=== PATIENT | female | born 1975 | race Caucasian/White ===

== ENCOUNTER 2018-03-30 17:16 | Emergency (ER) | payer OTHER, MEDICAID, SELFPAY ==
[2018-03-30 17:41] VITALS: BP 141/90; PULSE 121; RESP 18; TEMP 36.7; O2SAT 99
--- NOTE | 2018-03-30 18:09 | ED.GENADULT ---
HPI - General Adult <Isaac Schilling DO - Last Filed: 03/31/18 20:44> General Chief complaint: Toxicology Problem Stated complaint: ALCOHOL W/DRAWL, MASSIVE DEPRESSION Time Seen by Provider: 03/30/18 18:08 Source: patient Mode of arrival: ambulatory Limitations: no limitations History of Present Illness HPI narrative: 42-year-old female here for evaluation of depression and alcohol withdrawal. Patient states that she came in this evening because over the past month she has been drinking on a daily basis. Does not know exactly how much she drinks but at least 10 beers a day mixed with hard alcohol. She states she has had alcohol issues in the past. Has been through alcohol detox in the past but that was greater than 1 year ago. She states she has not taken any of her mental health medications to include Effexor and Remeron in the past month. She states she does not have any money for these items. She states that her friends by her her alcohol. She does have other issues going on to include relationship issues between her ex-. She also was under a legal custody baugh with her child. She states she has lost her job. Also has had a friend within the past several months. She states that this has led to the relapse of alcohol. She is currently living in her car. Her last drink was at 1600 hr this afternoon. Related Data Home Medications Medication Instructions Recorded Confirmed Control 1 tab PO DAILY 03/30/18 03/30/18 mirtazapine [Remeron] 15 mg PO BEDTIME 03/30/18 03/30/18 venlafaxine [Effexor XR] 150 mg PO DAILY 03/30/18 03/30/18 Allergies Allergy/AdvReac Type Severity Reaction Status Date / Time aripiprazole [From ABILIFY] Allergy Intermediate RAPID Verified 03/31/18 04:29 HEART RATE, ANXIETY, CRYING metronidazole Allergy Intermediate RASH/HIVES Verified 03/31/18 04:29 Review of Systems <DO Vinicius Farris Last Filed: 03/31/18 20:44> Constitutional Denies fever(s) and Denies headache(s) ENT Ears, Nose, Mouth, and Throat: Denies vertigo, Denies dizziness and Denies headache(s) Cardiovascular Denies chest pain and Denies dyspnea Respiratory Denies dyspnea Gastrointestinal Gastrointestinal: Denies abdominal pain, Denies nausea and Denies vomiting Genitourinary Denies dysuria Musculoskeletal Denies myalgias and Denies arthralgias Integumentary/Breasts Denies rash Neurologic Denies confusion, Denies vertigo, Denies dizziness, Denies headache(s) and Denies paresthesias Psychiatric Reports anxiety, Denies confusion, Reports depression, Reports hopelessness, Reports irritability, Reports mood swings, Denies panic attacks, Denies paranoia, Denies visual hallucinations, Denies homicidal ideation and Denies suicidal ideation Hematologic/Lymphatic Comments: Not on anticoagulation Exam <Isaac Schilling, DO - Last Filed: 03/31/18 20:44> Initial Vital Signs Initial Vital Signs: Vital Signs Temperature 98.0 F 03/30/18 17:41 Pulse Rate 121 H 03/30/18 17:41 Respiratory Rate 18 03/30/18 17:41 Blood Pressure 141/90 H 03/30/18 17:41 Pulse Oximetry 99 03/30/18 17:41 Const General: cooperative, comfortable, well developed, well groomed, No acute distress and anxious Orientation: alert, awake, oriented x3 and not confused Limitations: mental status not altered [facility] Head: normal to inspection and normocephalic Resp Effort & Inspection: normal respiratory effort Auscultation: clear to auscultation bilaterally Cardio Rate: tachycardic Rhythm: regular rhythm Pulses: radial pulses present GI Inspection: non-distended Skin Lesions: no lesions Rashes: no rashes Wounds: no wounds Neuro General: alert, awake and oriented x3 Cognition: normal cognition Speech: speech normal Sensory Exam: no sensory deficits noted Extrem General: normal to inspection and capillary refill normal Psych Appearance: grossly normal and well kempt Mental Status: mental status grossly normal Speech and Movement: not agitated, speech clear, speech not delayed, restless and speech not slurred Mood: anxious mood, not manic, not paranoid and No angry Affect: sad and No irritable affect Attitude: cooperative Thought Process: normal Thought Content: normal <Curly Costa, DO - Last Filed: 03/31/18 15:45> Initial Vital Signs Initial Vital Signs: Vital Signs Temperature 98.0 F 03/30/18 17:41 Pulse Rate 121 H 03/30/18 17:41 Respiratory Rate 18 03/30/18 17:41 Blood Pressure 141/90 H 03/30/18 17:41 Pulse Oximetry 99 03/30/18 17:41 Course <Isaac Schilling DO - Last Filed: 03/31/18 20:44> Orders Ordered: Discontinued Medications Chlordiazepoxide HCl (Librium) 10 mg PO NOW ONE Stop: 03/30/18 18:48 Last Admin: 03/30/18 19:21 Dose: 10 mg Diazepam (Valium) 5 mg IV NOW ONE Stop: 03/31/18 12:09 Last Admin: 03/31/18 12:24 Dose: 5 mg Sodium Chloride (Normal Saline 0.9%) 1,000 mls @ 125 mls/hr IV CONT VENITA Last Infusion: 03/30/18 22:10 Dose: 0 mls/hr Admin: 03/30/18 18:41 Dose: 125 mls/hr Lorazepam (Ativan) 1 mg IV NOW ONE Stop: 03/30/18 23:57 Last Admin: 03/31/18 00:05 Dose: 1 mg Lorazepam (Ativan) 2 mg IV NOW ONE Stop: 03/31/18 08:40 Last Admin: 03/31/18 08:46 Dose: 2 mg Vital Signs - 8 hr 03/31/18 15:01 Pulse Rate 106 H Respiratory Rate 24 Blood Pressure [Right Arm] 129/92 H Pulse Oximetry 98 <Curly Costa DO - Last Filed: 03/31/18 15:45> Orders Ordered: Discontinued Medications Chlordiazepoxide HCl (Librium) 10 mg PO NOW ONE Stop: 03/30/18 18:48 Last Admin: 03/30/18 19:21 Dose: 10 mg Diazepam (Valium) 5 mg IV NOW ONE Stop: 03/31/18 12:09 Last Admin: 03/31/18 12:24 Dose: 5 mg Sodium Chloride (Normal Saline 0.9%) 1,000 mls @ 125 mls/hr IV CONT VENITA Last Infusion: 03/30/18 22:10 Dose: 0 mls/hr Admin: 03/30/18 18:41 Dose: 125 mls/hr Lorazepam (Ativan) 1 mg IV NOW ONE Stop: 03/30/18 23:57 Last Admin: 03/31/18 00:05 Dose: 1 mg Lorazepam (Ativan) 2 mg IV NOW ONE Stop: 03/31/18 08:40 Last Admin: 03/31/18 08:46 Dose: 2 mg Reevaluation(s) Reevaluation #1: Received in sign-out from Dr. Schilling, I have performed my own interview and physical exam and have no significant additions. The patient is becoming a bit agitated and tachycardic to 110, Ativan ordered. She denies any suicidal or homicidal ideations. Her most recent hospitalizations for alcohol detox was about 1 year ago and most recently she has been to [place] twice and [facility] once. Time: 08:40 Reevaluation #2: Patient has been seen and evaluated by our care management team as well as social Work in the emergency department, both have deemed her stable for discharge in of given her significant resources to access at home. Please see their notes for further information. The patient will be given an Ativan taper to help her detox at home and she has significant resources for follow-up in the aftermath Vital Signs - 8 hr 03/31/18 15:01 Pulse Rate 106 H Respiratory Rate 24 Blood Pressure [Right Arm] 129/92 H Pulse Oximetry 98 Medical Decision Making <Isaac Schilling, - Last Filed: 03/31/18 20:44> Lab Data Lab results reviewed: Yes I reviewed the patient's lab results. Result diagrams: 03/30/18 18:25 03/30/18 18:25 Lab Results 03/30/18 03/30/18 03/30/18 Range/Units 18:25 18:25 18:25 WBC 7.8 (4.5-11.0) X10^3/uL RBC 4.51 (4.0-5.2) X10^6/uL Hgb 13.4 (12.0-16.0) g/dL Hct 40.4 (36-46) % MCV 89.5 (80-100) fL MCH 29.8 (26-34) PG MCHC 33.2 (30-36) % RDW 17.6 H (11.6-14.8) % Plt Count 391 (150-400) X10^3/uL Neut % (Auto) 62.1 (50-75) % Lymph % (Auto) 29.7 (25-40) % [place] % (Auto) 7.6 (3-14) % Eos % (Auto) 0.1 L (2-4) % Baso % (Auto) 0.5 (0-2) % Neut # (Auto) 4900 (0060-6900) /uL Sodium 144 (137-145) mmol/L Potassium 3.4 (3.4-5.1) mmol/L Chloride 103 (98-107) mmol/L Carbon Dioxide 27 (22-32) mmol/L BUN 7 (7-17) mg/dL Creatinine 0.60 (0.52-1.04) mg/dL Estimated GFR > 60.0 (>60) mL/min BUN/Creatinine Ratio 11.7 (6-22) Glucose 91 (70-100) mg/dL Calcium 9.4 (8.4-10.2) mg/dL Total Bilirubin 0.3 (0.2-1.3) mg/dL AST 31 (14-36) IU/L ALT 25 (9-52) IU/L Alkaline Phosphatase 75 (38-126) U/L Total Protein 8.2 (6.3-8.2) g/dL Albumin 4.7 (3.5-5.0) g/dL Globulin 3.5 (1.7-4.1) g/dL Albumin/Globulin Ratio 1.3 (1.0-2.8) Lipase 134 (23-300) U/L TSH 1.37 (0.47-4.68) uIU/mL Salicylates < 1.0 (<20) mg/dL Urine Opiates Screen (Negative) Ur Oxycodone Screen (Negative) Urine Methadone Screen (Negative) Acetaminophen < 10 L (10-30) ug/mL Ur Barbiturates Screen (Negative) U Tricyclic Antidepress (Negative) Ur Phencyclidine Scrn (Negative) Ur Amphetamines Screen (Negative) U Methamphetamines Scrn (Negative) Ur MDMA Scrn (Ecstasy) (Negative) U Benzodiazepines Scrn (Negative) Urine Cocaine Screen (Negative) U Marijuana (THC) Screen (Negative) Ethyl Alcohol 134 mg/dL 03/30/18 Range/Units 19:50 WBC (4.5-11.0) X10^3/uL RBC (4.0-5.2) X10^6/uL Hgb (12.0-16.0) g/dL Hct (36-46) % MCV (80-100) fL MCH (26-34) PG MCHC (30-36) % RDW (11.6-14.8) % Plt Count (150-400) X10^3/uL Neut % (Auto) (50-75) % Lymph % (Auto) (25-40) % [place] % (Auto) (3-14) % Eos % (Auto) (2-4) % Baso % (Auto) (0-2) % Neut # (Auto) (0884-2538) /uL Sodium (137-145) mmol/L Potassium (3.4-5.1) mmol/L Chloride (98-107) mmol/L Carbon Dioxide (22-32) mmol/L BUN (7-17) mg/dL Creatinine (0.52-1.04) mg/dL Estimated GFR (>60) mL/min BUN/Creatinine Ratio (6-22) Glucose (70-100) mg/dL Calcium (8.4-10.2) mg/dL Total Bilirubin (0.2-1.3) mg/dL AST (14-36) IU/L ALT (9-52) IU/L Alkaline Phosphatase (38-126) U/L Total Protein (6.3-8.2) g/dL Albumin (3.5-5.0) g/dL Globulin (1.7-4.1) g/dL Albumin/Globulin Ratio (1.0-2.8) Lipase (23-300) U/L TSH (0.47-4.68) uIU/mL Salicylates (<20) mg/dL Urine Opiates Screen Negative (Negative) Ur Oxycodone Screen Negative (Negative) Urine Methadone Screen Negative (Negative) Acetaminophen (10-30) ug/mL Ur Barbiturates Screen Negative (Negative) U Tricyclic Antidepress Negative (Negative) Ur Phencyclidine Scrn Negative (Negative) Ur Amphetamines Screen Negative (Negative) U Methamphetamines Scrn Negative (Negative) Ur MDMA Scrn (Ecstasy) Negative (Negative) U Benzodiazepines Scrn Negative (Negative) Urine Cocaine Screen Negative (Negative) U Marijuana (THC) Screen Positive H (Negative) Ethyl Alcohol mg/dL Point of Care Testing Test Results Negative Urine Dip Bedside Urine Glucose Negative Bedside Urine Bilirubin - Negative Bedside Urine Ketone - Negative Urine Specific [place] 1.010 Bedside Urine Occult Blood + Bedside Urine pH 7.0 Bedside Urine Protein - Negative Bedside Urine Urobilinogen - Negative Bedside Urine Nitrite - Negative Bedside Urine Leukocytes - Negative Esterase Point of care testing: Point of Care Testing Test Results Negative Urine Dip Bedside Urine Glucose Negative Bedside Urine Bilirubin - Negative Bedside Urine Ketone - Negative Urine Specific [place] 1.010 Bedside Urine Occult Blood + Bedside Urine pH 7.0 Bedside Urine Protein - Negative Bedside Urine Urobilinogen - Negative Bedside Urine Nitrite - Negative Bedside Urine Leukocytes - Negative Esterase ECG Data Attestation: I personally reviewed and interpreted this ECG as follows: Prior ECG tracings: not available for review Interpretation: Sinus tachycardia ventricular rate of 106 Normal axis normal intervals Normal QRS normal QTC no ST T wave changes MDM Narrative Medical decision making narrative: patient has been calm since being here in the emergency department. She is voluntary. She is asking for help with regard to her alcohol and also her depression. She currently is not suicidal but she is obviously hopeless. Mentions multiple times that she does not know which she is going to do next and what life is going to bring. Multiple factors to include family issues. She is currently living in her car. She was given a Librium at approximately 720 this evening. Heart rate was elevated upon arrival that has since improved. Patient is medically clear. attempted to contact multiple places for detox however there are no beds available. Patient continues to be medically clear. Is stable. Had a discussion with patient regarding options and after this discussion decision was made for her to stay with this here in the emergency department this evening and re-evaluate attempt placement in the morning. evaluated at 0030 patient stated that she did not need any more medications. She was willing to stay here in the emergency department. Social work consult was placed. Will continue to monitor this evening. Patient is stable overnight. No further Ativan was required. Patient not tachycardic. Social service consult was placed to help with disposition. Care turned over to day provider change of shift for disposition. <Curly Costa, DO - Last Filed: 03/31/18 15:45> Lab Data Lab Results 03/30/18 03/30/18 03/30/18 Range/Units 18:25 18:25 18:25 WBC 7.8 (4.5-11.0) X10^3/uL RBC 4.51 (4.0-5.2) X10^6/uL Hgb 13.4 (12.0-16.0) g/dL Hct 40.4 (36-46) % MCV 89.5 (80-100) fL MCH 29.8 (26-34) PG MCHC 33.2 (30-36) % RDW 17.6 H (11.6-14.8) % Plt Count 391 (150-400) X10^3/uL Neut % (Auto) 62.1 (50-75) % Lymph % (Auto) 29.7 (25-40) % [place] % (Auto) 7.6 (3-14) % Eos % (Auto) 0.1 L (2-4) % Baso % (Auto) 0.5 (0-2) % Neut # (Auto) 4900 (0039-5248) /uL Sodium 144 (137-145) mmol/L Potassium 3.4 (3.4-5.1) mmol/L Chloride 103 (98-107) mmol/L Carbon Dioxide 27 (22-32) mmol/L BUN 7 (7-17) mg/dL Creatinine 0.60 (0.52-1.04) mg/dL Estimated GFR > 60.0 (>60) mL/min BUN/Creatinine Ratio 11.7 (6-22) Glucose 91 (70-100) mg/dL Calcium 9.4 (8.4-10.2) mg/dL Total Bilirubin 0.3 (0.2-1.3) mg/dL AST 31 (14-36) IU/L ALT 25 (9-52) IU/L Alkaline Phosphatase 75 (38-126) U/L Total Protein 8.2 (6.3-8.2) g/dL Albumin 4.7 (3.5-5.0) g/dL Globulin 3.5 (1.7-4.1) g/dL Albumin/Globulin Ratio 1.3 (1.0-2.8) Lipase 134 (23-300) U/L TSH 1.37 (0.47-4.68) uIU/mL Salicylates < 1.0 (<20) mg/dL Urine Opiates Screen (Negative) Ur Oxycodone Screen (Negative) Urine Methadone Screen (Negative) Acetaminophen < 10 L (10-30) ug/mL Ur Barbiturates Screen (Negative) U Tricyclic Antidepress (Negative) Ur Phencyclidine Scrn (Negative) Ur Amphetamines Screen (Negative) U Methamphetamines Scrn (Negative) Ur MDMA Scrn (Ecstasy) (Negative) U Benzodiazepines Scrn (Negative) Urine Cocaine Screen (Negative) U Marijuana (THC) Screen (Negative) Ethyl Alcohol 134 mg/dL 03/30/18 Range/Units 19:50 WBC (4.5-11.0) X10^3/uL RBC (4.0-5.2) X10^6/uL Hgb (12.0-16.0) g/dL Hct (36-46) % MCV (80-100) fL MCH (26-34) PG MCHC (30-36) % RDW (11.6-14.8) % Plt Count (150-400) X10^3/uL Neut % (Auto) (50-75) % Lymph % (Auto) (25-40) % [place] % (Auto) (3-14) % Eos % (Auto) (2-4) % Baso % (Auto) (0-2) % Neut # (Auto) (0554-7148) /uL Sodium (137-145) mmol/L Potassium (3.4-5.1) mmol/L Chloride (98-107) mmol/L Carbon Dioxide (22-32) mmol/L BUN (7-17) mg/dL Creatinine (0.52-1.04) mg/dL Estimated GFR (>60) mL/min BUN/Creatinine Ratio (6-22) Glucose (70-100) mg/dL Calcium (8.4-10.2) mg/dL Total Bilirubin (0.2-1.3) mg/dL AST (14-36) IU/L ALT (9-52) IU/L Alkaline Phosphatase (38-126) U/L Total Protein (6.3-8.2) g/dL Albumin (3.5-5.0) g/dL Globulin (1.7-4.1) g/dL Albumin/Globulin Ratio (1.0-2.8) Lipase (23-300) U/L TSH (0.47-4.68) uIU/mL Salicylates (<20) mg/dL Urine Opiates Screen Negative (Negative) Ur Oxycodone Screen Negative (Negative) Urine Methadone Screen Negative (Negative) Acetaminophen (10-30) ug/mL Ur Barbiturates Screen Negative (Negative) U Tricyclic Antidepress Negative (Negative) Ur Phencyclidine Scrn Negative (Negative) Ur Amphetamines Screen Negative (Negative) U Methamphetamines Scrn Negative (Negative) Ur MDMA Scrn (Ecstasy) Negative (Negative) U Benzodiazepines Scrn Negative (Negative) Urine Cocaine Screen Negative (Negative) U Marijuana (THC) Screen Positive H (Negative) Ethyl Alcohol mg/dL Point of Care Testing Test Results Negative Urine Dip Bedside Urine Glucose Negative Bedside Urine Bilirubin - Negative Bedside Urine Ketone - Negative Urine Specific [place] 1.010 Bedside Urine Occult Blood + Bedside Urine pH 7.0 Bedside Urine Protein - Negative Bedside Urine Urobilinogen - Negative Bedside Urine Nitrite - Negative Bedside Urine Leukocytes - Negative Esterase Point of care testing: Point of Care Testing Test Results Negative Urine Dip Bedside Urine Glucose Negative Bedside Urine Bilirubin - Negative Bedside Urine Ketone - Negative Urine Specific [place] 1.010 Bedside Urine Occult Blood + Bedside Urine pH 7.0 Bedside Urine Protein - Negative Bedside Urine Urobilinogen - Negative Bedside Urine Nitrite - Negative Bedside Urine Leukocytes - Negative Esterase Discharge Plan Departure Patient Disposition: Xfer Psychiatric Hosp Clinical Impression: Alcoholic intoxication, Depression Discharge Date/Time: 03/31/18 15:53 Interventions: ED Discharge Assessment Last Done: 03/31/18 15:53 Activity Restrictions/Additional Instructions: *You have been diagnosed with [acute alcohol withdrawal, anxiety, depression ] *What to do: *Take medications as directed. Ativan prescription has been given to you for help with withdrawal symptoms *Follow up with your primary care provider in 2-3 days, call for an appointment. Let them know you were seen in the Emergency Department and that we ask that you be seen in follow up *Return to ER if you should have any new, worsening or concerning symptoms Referrals: [facility] [Outside] Alejandra Cormier DO [Primary Care Provider] -
[2018-03-30 18:36] LABS: Add Manual Diff / Slide Review NO; Basophils Percent Auto 0.5 % (0-2); Eosinophils Percent Auto 0.1 % (2-4); Hematocrit 40.4 % (36-46); Hemoglobin 13.4 g/dL (12.0-16.0); Lymphocytes Percent Auto 29.7 % (25-40); Mean Corpuscular HGB Conc 33.2 % (30-36); Mean Corpuscular Hemoglobin 29.8 PG (26-34); Mean Corpuscular Volume 89.5 fL (80-100); Monocytes Percent Auto 7.6 % (3-14); Neutrophils Absolute Auto 4900 /uL (3000-5900); Neutrophils Percent Auto 62.1 % (50-75); Platelet Count 391 X10^3/uL (150-400); Red Blood Cell Count 4.51 X10^6/uL (4.0-5.2); Red Cell Distribution Width 17.6 % (11.6-14.8); White Blood Cell Count 7.8 X10^3/uL (4.5-11.0)
[2018-03-30] MEDS: SODIUM CHLORIDE 0.9% 1,000 ML 125 ML IV (18:41)
[2018-03-30 18:49] LABS: Acetaminophen < 10 ug/mL (10-30); Alanine Aminotransferase 25 IU/L (9-52); Albumin 4.7 g/dL (3.5-5.0); Albumin Globulin Ratio 1.3 (1.0-2.8); Alkaline Phosphatase 75 U/L (38-126); Aspartate Aminotransferase 31 IU/L (14-36); BUN Creatinine Ratio 11.7 (6-22); Bilirubin Total 0.3 mg/dL (0.2-1.3); Blood Urea Nitrogen 7 mg/dL (7-17); Calcium 9.4 mg/dL (8.4-10.2); Carbon Dioxide 27 mmol/L (22-32); Chloride 103 mmol/L (98-107); Estimated Glomerular Filt Rate > 60.0 mL/min (>60); Ethanol (ETOH) 134 mg/dL; Globulin 3.5 g/dL (1.7-4.1); Glucose 91 mg/dL (70-100); HEMOLYSIS < 15 (0-50); Lipase 134 U/L (23-300); Potassium 3.4 mmol/L (3.4-5.1); Salicylate < 1.0 mg/dL (<20); Sodium 144 mmol/L (137-145); Total Protein 8.2 g/dL (6.3-8.2)
[2018-03-30] MEDS: chlordiazePOXIDE 10 MG CAPSULE PO (19:21)
[2018-03-30 19:26] LABS: Thyroid Stimulating Hormone 1.37 uIU/mL (0.47-4.68)
[2018-03-30 20:08] LABS: Urine Amphetamines Negative (Negative); Urine Barbiturates Negative (Negative); Urine Benzodiazepines Negative (Negative); Urine Cocaine Negative (Negative); Urine MDMA Negative (Negative); Urine Methadone Negative (Negative); Urine Methamphetamines Negative (Negative); Urine Morphine/Opi cutoff 2000 Negative (Negative); Urine Oxycodone Negative (Negative); Urine Phencyclidine Negative (Negative); Urine Tetrahydrocannabinol Positive (Negative); Urine Tricyclic Antidepressant Negative (Negative)
[2018-03-30 20:24] VITALS: BP 121/78; PULSE 98; RESP 16; O2SAT 98
[2018-03-30 21:19] VITALS: BP 129/82; PULSE 103; RESP 16; O2SAT 98
--- NOTE | 2018-03-30 23:39 | PC.NURSE ---
Pt states she feels like she is having a crisis and no one is available to help her. States she doesn't know what she wants to do but would like something to help calm her thoughts. . made aware.
[2018-03-31] VITALS (9 sets, daily range): BP systolic 114–129; BP diastolic 76–92; PULSE 88–118; RESP 16–24; O2SAT 97–99
[2018-03-31] MEDS: LORazepam 2 MG/ML SYRINGE 1 MG IV (00:05)
[2018-03-31] MEDS: LORazepam 2 MG/ML SYRINGE IV (08:46)
[2018-03-31] MEDS: diazePAM 10 MG/2 ML SYRINGE 5 MG IV (12:24)
--- NOTE | 2018-03-31 12:44 | CM.SWNOTE ---
Social Work Consult Request: Reviewed H+P draft by Dr Schilling and spoke w/RN and Dr Costa this morning to understand reason for referral. Ada continues to be calm and cooperative w/care, a little agitated this morning, denies suicidal or homicidal ideation. Ada is requesting inpt CD treatment, preferably dual diagnosis w/her h/o depression. Placed call to [facility] at approx 0830, no female beds available but instructed to CB at 1100. H/O Presenting Problem: Met w/Ada and explained SW role. Ada has been couch surfing and admits to drinking at least 10 beers daily with some hard alcohol. Ada has a jeep but no gas money available right now and no minutes available on her phone. Ada admits that she needs help. She feels overwhelmed by recent life stressors to include loss of her job, relationship issues with both her ex- (and father of her two children)and recent ex-boyfriend. She recently moved from a home in [facility] where she lived w/her ex-boyfriend. She was served court papers by her ex-, this CAR UNLOADER HELPER unsure why from Ada's report. She has no income and has not been able to fill her Effexor and Remeron prescription and her Medicaid coverage has lapsed. Ada explains to this CAR UNLOADER HELPER the many lengths she has gone to take care of others recently, to include a close friend who of cancer in the last few months; This experience left her feeling emotionally tapped and financially destitute. She is agreeable to go inpt treatment to address her depression and alcohol dependence. Ada wants to get her life back on track but feels overwhelmed today by what she needs to do. H/O Treatment: Last spring, Ada went to a detox center in [place] (she had private insurance at that time) from there she was sent to [facility] in [place] and stayed for a few days before leaving. She explained it was awful and not helpful to her. Ada does not have an outpt MH provider/counselor at this time. Her PCP is Dr Cormier. CAR UNLOADER HELPER Recs and Tasks: This CAR UNLOADER HELPER feels Ada is a good candidate for stabilization, counseling, and med management at an inpt, dual diagnosis, MH/CD facility but the challenge is, she will need to go through detox before being admitted to an inpt setting. Attempted [facility] again at approx 1130; they do not have a bed but may have an opening if we call again at 1400. Meanwhile, admission team was able to reinstate Ada's Medicaid which should be active retroactively to Mar 25. Called [facility] and had to LM. Reviewed above w/ Curly Costa and he said he'd prescribe the ativan needed for a home detox which Ada was requesting. Met w/Ada and explained that she would need to go through the detox process before being admitted to any inpt unit. Provided Ada w/the contact information for [facility] and encouraged her to call today and daily thereafter. If prescribed Ativan today, she should take that prescription to [facility] if they had a bed for her, Ada agreed to this. Also strongly encouraged Ada to f/u w/ [facility] today. This CAR UNLOADER HELPER called [facility] and they confirmed Ada should present next Tuesday at 0530 to secure a walk in appt for counseling and additional resource referral. Provided this information to Ada. Also provided contact information for resources listed above. Recommended to ED staff that they DC Ada home via taxi. Ada continues to deny suicidal ideation or intent. She states she can stay w/her aunt and uncle. She should be advised to contact [facility]. She should be encouraged to go p/u her psych meds, waiting at [facility]. She can use her Medicaid for these prescriptions as well as any prescribed by Curly Costa today. She can call [facility] for crisis response to assist in remaining sober and continuing the detox process. [facility] Discharge Planning/Care Management ED Crisis Response Assessment Start: 03/31/18 12:35 Freq: Status: Active Protocol: Document 03/31/18 12:35 ANA LAURA (Rec: 03/31/18 12:43 ANA LAURA [email or web address]) ED Crisis Response Assessment CAR UNLOADER HELPER Assessment Type Substance Abuse Reason for CAR UNLOADER HELPER Referral Ada presented yesterday afternoon requesting help w/ coordination of inpt treatment for ETOH use. Last drink was yesterday afternoon approx 1600. [facility] was called last evening by ER staff, no beds available. This CAR UNLOADER HELPER requested to attempt other voluntary CD treatment options. Referred by Curly Costa Presenting Problem H/o heavy ETOH abuse and off psych meds , states she can not afford these Mental health diagnosis Depression, has been on effexor, no PCP or outpt MH provider at this time, per Ada [facility] check No: [employer] explored last night per ED provider, does not meet criteria Suicidal thoughts No Past Suicidal thoughts No Current Suicidal thoughts No Prior Suicide attempts No Current plan for self harm No Access to guns and weapons No Thoughts of harm to others No Past thoughts of harm to others No Current thoughts of harming others No Prior attempts to harm others No Current plan to harm others No Current Risk factors Recent job loss Substance abuse Legal concerns Financial difficulties Marital and family difficulties Risk factor comments See narrative Relevant Medical History None known to this CAR UNLOADER HELPER Resources Provided See narrative Action taken Sent home: [facility] to follow
--- NOTE | 2018-03-31 14:52 | CM.SWNOTE ---
ED CONTINUOUS CRUSHER OPERATOR Note MATERIALS ENGINEER met with pt as a follow up to Salome Anglin, CONTINUOUS CRUSHER OPERATOR's contact with patient. Spoke with Salome and then with pt. Called [facility], but they still do not have a bed and do not anticipate one until at least tomorrow. They stated that pt can call tomorrow. Assessment: Pt is anxious, shakey and in process of detox from ETOH. She denied DI/HI to both SW and provider. She is open to help. She reported to both Salome and this CONTINUOUS CRUSHER OPERATOR that she felt as though she was having a breakdown. She feels overwhemled by the loss of job, relationships and lck of money. Plan: Pt to discharge from ED to her aunt and uncle's home. her Medicaid has been re-instated. A [employer] appt for a phone call has been set for this evening at 6 PM. At that time she and pt will discuss whether she needs and desires [facility] to come out. Pt was also informed of walk in appts beginning at 5:30 AM at [facility]. Information provided to both Dr Costa and pt's RN, Mikki. No further SW needs noted.
== END 2018-03-31 15:53 ==
PROVIDERS: Emergency Medicine; Emergency Provider Emergency Medicine; Family Provider Family Medicine; PCP Family Medicine
DX: F10.929 Alcohol use, unspecified with intoxication, unspecified (principal); F32.9 Major depressive disorder, single episode, unspecified
CPT/HCPCS: 80053; 80305; 80320; 80329; 81003; 81025; 83690; 84443; 85025; 93005; 93010; 96361; 96374; 96375; 96376; 99285; G0480; J2060; J3360

== ENCOUNTER 2021-05-20 12:29 | Emergency (ER) | payer OTHER, MEDICAID, SELFPAY ==
[2021-05-20] VITALS (11 sets, daily range): BP systolic 116–160; BP diastolic 66–102; PULSE 82–118; RESP 14–22; TEMP 36.2; O2SAT 97–99; BMI 22.3
[2021-05-20 13:12] LABS: Add Manual Diff / Slide Review NO; Basophils Absolute Auto 0 /uL (0-100); Basophils Percent Auto 0.7 % (0-2); Eosinophils Absolute Auto 0 /uL (0-450); Eosinophils Percent Auto 0.8 % (2-4); Hematocrit 43.6 % (36-46); Hemoglobin 15.1 g/dL (12.0-16.0); Lymphocytes Absolute Auto 1700 /uL (1100-4500); Lymphocytes Percent Auto 43.4 % (25-40); Mean Corpuscular HGB Conc 34.6 % (30-36); Mean Corpuscular Hemoglobin 34.9 PG (26-34); Mean Corpuscular Volume 100.8 fL (80-100); Monocytes Absolute Auto 300 /uL (0-900); Monocytes Percent Auto 8.2 % (3-14); Neutrophils Absolute Auto 1900 /uL (1500-7000); Neutrophils Percent Auto 46.9 % (50-75); Platelet Count 273 X10^3/uL (150-400); Red Blood Cell Count 4.32 X10^6/uL (4.0-5.2); Red Cell Distribution Width 16.5 % (11.6-14.8)
[2021-05-20] MEDS: ONDANSETRON 4 MG/2 ML INJ IV (13:15)
[2021-05-20 13:18] LABS: Amorphous Sediment Urine 2+; Bacteria Urine None Seen; Culture Indicated Urine Cult Not Indicated; RBC Urine 1-5/HPF (0-5/HPF); Squamous Epithelial Cell Urine 10-30 /HPF (0-5/HPF); WBC Urine 5-10/HPF (0-5/HPF)
--- NOTE | 2021-05-20 13:44 | ED_ITS ---
HPI - General Adult General Chief complaint: Toxicology Problem Stated complaint: Alcohol withdrawal Time Seen by Provider: 05/20/21 13:29 Source: patient Mode of arrival: Ambulatory History of Present Illness HPI narrative: Patient is a 45-year-old female. Has a history of alcohol abuse. Has been to detox and also rehab in the past. Has been drinking daily for some time now. Her last drink was the 0900 hours last evening. She is here in the emergency department today asking for help with alcohol detox. She has withdrawn from al cohol before but has never had a seizure. She is currently feeling very anxious and having shaking. She denies any other medical issues. Related Data Home Medications Medication Instructions Recorded Confirmed Control 1 tab PO DAILY 03/30/18 03/30/18 mirtazapine 15 mg tablet (Remeron) 15 mg PO BEDTIME 03/30/18 03/30/18 venlafaxine 150 mg 150 mg PO DAILY 03/30/18 03/30/18 capsule,extended release 24 hr (Effexor XR) Previous Rx's Medication Instructions Recorded chlordiazepoxide HCl 25 mg capsule 25 mg PO Q12H PRN #4 cap 05/20/21 mupirocin 2 % topical ointment 1 applic TOPICAL BID #22 g 05/20/21 Allergies Allergy/AdvReac Type Severity Reaction Status Date / Time aripiprazole [From ABILIFY] Allergy Intermediate RAPID Verified 05/20/21 12:35 HEART RATE, ANXIETY, CRYING metronidazole Allergy Intermediate RASH/HIVES Verified 05/20/21 12:35 Review of Systems Constitutional Constitutional: Denies fever(s) and Denies headache(s) ENT Ears, Nose, Mouth, and Throat: Denies headache(s) Cardiovascular Cardiovascular: Denies chest pain and Denies dyspnea Respiratory Respiratory: Denies dyspnea Gastrointestinal Gastrointestinal: Reports nausea and Denies vomiting Integumentary/Breasts Skin/Breast: Reports system reviewed and no additional complaints, except as documented Neurologic Neurologic: Denies headache(s) Psychiatric Psychiatric: Reports anxiety and Reports irritability Hematologic/Lymphatic On Anticoagulants: No Allergic/Immunologic Allergic/Immunologic: Reports system reviewed and no additional complaints, except as documented Patient History Medical History Alcohol abuse Depression Insomnia Surgical History (Updated 08/23/17 @ 06:19 by Alejandra Cormier DO) Status post laparoscopy Social History marital status: Smoking Status: Current every day smoker Smoking Status: Current every day smoker alcohol intake frequency: 3 or more drinks per day Substance Use Type: marijuana Exam Initial Vital Signs Initial Vital Signs: Vital Signs Temperature 97.1 F L 05/20/21 12:35 Pulse Rate 111 H 05/20/21 12:35 Respiratory Rate 14 05/20/21 12:35 Blood Pressure 148/102 H 05/20/21 12:35 Pulse Oximetry 97 05/20/21 12:35 HENMT Head: normal to inspection and normocephalic Resp Effort & Inspection: normal respiratory effort Auscultation: clear to auscultation bilaterally Cardio Rate: regular rate Rhythm: regular rhythm GI Inspection: normal to inspection Palpation: soft and No tender Skin General: no rashes or lesions noted Neuro General: patient alert, patient awake, patient oriented x3 and moves all extremities Speech: speech normal Gait: normal gait Extrem General: capillary refill normal Psych Appearance: grossly normal and well kempt Mental Status: mental status grossly normal Speech and Movement: speech and movement normal Mood: congruent mood Affect: sad and No irritable affect Attitude: cooperative Thought Process: normal Thought Content: normal Judgment: fair Scores GCS Mark coma scale eye opening: Spontaneous [place] coma scale verbal response: Orientated Mark coma scale motor response: Obey commands Mark coma scale total score: 15 Course Orders Ordered: Discontinued Medications Chlordiazepoxide HCl (Chlordiazepoxide 25 Mg Capsule) 25 mg PO NOW ONE Stop: 05/20/21 13:57 Last Admin: 05/20/21 14:01 Dose: 25 mg Documented by: JOY Lorazepam (Lorazepam 2 Mg/Ml Inj) 2 mg IV NOW ONE Stop: 05/20/21 14:06 Last Admin: 05/20/21 14:08 Dose: 2 mg Documented by: JOY Ondansetron HCl (Ondansetron 4 Mg/2 Ml Inj) 4 mg IV NOW ONE Stop: 05/20/21 12:39 Last Admin: 05/20/21 13:15 Dose: 4 mg Documented by: PRIMITIVO Potassium Chloride (Potassium Chloride 20 Meq Tab) 20 meq PO NOW ONE Stop: 05/20/21 13:57 Last Admin: 05/20/21 14:01 Dose: 20 meq Documented by: JOY Vital Signs Vital signs: Vital Signs - 8 hr 05/20/21 12:35 05/20/21 13:28 05/20/21 13:30 Temperature 97.1 F L Pulse Rate 111 H 90 89 Respiratory Rate 14 16 Blood Pressure 148/102 H 160/96 H Pulse Oximetry 97 97 99 05/20/21 14:00 05/20/21 14:06 05/20/21 14:30 Temperature Pulse Rate 84 82 85 Respiratory Rate 14 22 20 Blood Pressure 145/93 H 146/90 H Pulse Oximetry 97 98 98 Medical Decision Making Medical Records Medical records reviewed: Yes I reviewed the patient's medical records. Lab Data Lab results reviewed: Yes I reviewed the patient's lab results. Result diagrams: 05/20/21 13:00 05/20/21 12:39 Labs: Lab Results 05/20/21 05/20/21 05/20/21 Range/Units 12:39 12:39 12:59 WBC (4.5-11.0) X10^3/uL RBC (4.0-5.2) X10^6/uL Hgb (12.0-16.0) g/dL Hct (36-46) % MCV (80-100) fL MCH (26-34) PG MCHC (30-36) % RDW (11.6-14.8) % Plt Count (150-400) X10^3/uL Neut % (Auto) (50-75) % Lymph % (Auto) (25-40) % Roberts % (Auto) (3-14) % Eos % (Auto) (2-4) % Baso % (Auto) (0-2) % Neut # (Auto) (8955-1794) /uL Lymph # (Auto) (2192-8817) /uL Roberts # (Auto) (0-900) /uL Eos # (Auto) (0-450) /uL Baso # (Auto) (0-100) /uL Sodium 141 (137-145) mmol/L Potassium 2.9 L (3.4-5.1) mmol/L Chloride 101 (98-107) mmol/L Carbon Dioxide 29 (22-32) mmol/L BUN 10 (7-17) mg/dL Creatinine 0.58 (0.52-1.04) mg/dL Estimated GFR > 60.0 (>60) mL/min BUN/Creatinine Ratio 17.2 (6-22) Glucose 123 H (70-100) mg/dL Calcium 9.0 (8.4-10.2) mg/dL Total Bilirubin 0.5 (0.2-1.3) mg/dL AST 60 H (14-36) IU/L ALT 30 (<35) IU/L Alkaline Phosphatase 111 (38-126) U/L Total Protein 8.2 (6.3-8.2) g/dL Albumin 4.3 (3.5-5.0) g/dL Globulin 3.9 (1.7-4.1) g/dL Albumin/Globulin Ratio 1.1 (1.0-2.8) TSH 1.20 (0.47-4.68) uIU/mL Free T4 0.67 L (0.78-2.19) ng/dL Urine RBC 1-5/hpf (0-5/HPF) Urine WBC 5-10/hpf H (0-5/HPF) Ur Squamous Epith Cells 10-30 /hpf H (0-5/HPF) Amorphous Sediment 2+ Urine Bacteria None seen (None) Ur Culture Indicated? Cult not indicated Salicylates < 1.0 (<20) mg/dL Acetaminophen < 10 L (10-30) ug/mL Ethyl Alcohol < 10 ( - 10) mg/dL SARS-CoV-2 (PCR) (Negative) 05/20/21 05/20/21 Range/Units 13:00 15:33 WBC 4.0 L (4.5-11.0) X10^3/uL RBC 4.32 (4.0-5.2) X10^6/uL Hgb 15.1 (12.0-16.0) g/dL Hct 43.6 (36-46) % MCV 100.8 H (80-100) fL MCH 34.9 H (26-34) PG MCHC 34.6 (30-36) % RDW 16.5 H (11.6-14.8) % Plt Count 273 (150-400) X10^3/uL Neut % (Auto) 46.9 L (50-75) % Lymph % (Auto) 43.4 H (25-40) % Roberts % (Auto) 8.2 (3-14) % Eos % (Auto) 0.8 L (2-4) % Baso % (Auto) 0.7 (0-2) % Neut # (Auto) 1900 (8955-4642) /uL Lymph # (Auto) 1700 (1480-6091) /uL Roberts # (Auto) 300 (0-900) /uL Eos # (Auto) 0 (0-450) /uL Baso # (Auto) 0 (0-100) /uL Sodium (137-145) mmol/L Potassium (3.4-5.1) mmol/L Chloride (98-107) mmol/L Carbon Dioxide (22-32) mmol/L BUN (7-17) mg/dL Creatinine (0.52-1.04) mg/dL Estimated GFR (>60) mL/min BUN/Creatinine Ratio (6-22) Glucose (70-100) mg/dL Calcium (8.4-10.2) mg/dL Total Bilirubin (0.2-1.3) mg/dL AST (14-36) IU/L ALT (<35) IU/L Alkaline Phosphatase (38-126) U/L Total Protein (6.3-8.2) g/dL Albumin (3.5-5.0) g/dL Globulin (1.7-4.1) g/dL Albumin/Globulin Ratio (1.0-2.8) TSH (0.47-4.68) uIU/mL Free T4 (0.78-2.19) ng/dL Urine RBC (0-5/HPF) Urine WBC (0-5/HPF) Ur Squamous Epith Cells (0-5/HPF) Amorphous Sediment Urine Bacteria (None) Ur Culture Indicated? Salicylates (<20) mg/dL Acetaminophen (10-30) ug/mL Ethyl Alcohol ( - 10) mg/dL SARS-CoV-2 (PCR) Positive H (Negative) Point of Care Testing Test Results Negative Urine Dip Bedside Urine Glucose Negative Bedside Urine Bilirubin - Negative Bedside Urine Ketone - Negative Urine Specific [place] 1.030 Bedside Urine Occult Blood +/- Bedside Urine pH 6.0 Bedside Urine Protein ++ 100 Bedside Urine Urobilinogen - Negative Bedside Urine Nitrite - Negative Bedside Urine Leukocytes - Negative Esterase Point of care testing: Point of Care Testing Test Results Negative Urine Dip Bedside Urine Glucose Negative Bedside Urine Bilirubin - Negative Bedside Urine Ketone - Negative Urine Specific [place] 1.030 Bedside Urine Occult Blood +/- Bedside Urine pH 6.0 Bedside Urine Protein ++ 100 Bedside Urine Urobilinogen - Negative Bedside Urine Nitrite - Negative Bedside Urine Leukocytes - Negative Esterase MDM Narrative Medical decision making narrative: Patient is alert oriented x3. Does have a CIWA score of 10. Was given Librium and also Ativan. Patient's alcohol level was 0. Is medically cleared. Seen by social work. She is open to detox. Will attempt to find placement. Patient did end up being COVID positive. She does not necessarily have specific symptoms related to COVID especially given her alcohol withdrawal symptoms as well. She is unvaccinated. She did feel much better after the Librium in the Ativan. Was seen by social work. Unfortunately given her COVID status no detox facilities are willing to accept her. I did have a discussion with the patient regarding this. I will send her home with Librium for the next 2 days. We did discuss return precautions. She was given information regard to rehab facilities a. Discussed CDC recommendations for quarantine. She expressed understanding and agreement. Discharge Plan Departure Patient Disposition: Home Clinical Impression: Alcohol withdrawal, COVID-19 Instructions: DI for Alcohol Use Disorder, DI for COVID-19 (Suspected or Confirmed ) Activity Restrictions/Additional Instructions: I do recommend that you talk with your primary doctor about follow-up. You can return to the emergency department for any new or worsening symptoms. You were positive for COVID-19 today. Please follow current CDC guidelines with regard to quarantine. Prescriptions: New mupirocin 2 % ointment 1 applic topical BID Qty: 22 0RF chlordiazepoxide HCl 25 mg capsule 25 mg PO Q12H PRN (Reason: alcohol withdrawal) Qty: 4 0RF No Action venlafaxine [Effexor XR] 150 mg Capsule,Extended Release 24hr 150 mg PO DAILY 0RF Label Comments: ran out - no primary physician etc mirtazapine [Remeron] 15 mg Tablet 15 mg PO BEDTIME 0RF Label Comments: ran out - no primary physician etc Control 1 tab PO DAILY 0RF Label Comments: ran out yesterday Stand Alone Forms: Naloxone Standing Order DAVID
[2021-05-20 13:47] LABS: Acetaminophen < 10 ug/mL (10-30); Alanine Aminotransferase 30 IU/L (<35); Albumin 4.3 g/dL (3.5-5.0); Albumin Globulin Ratio 1.1 (1.0-2.8); Alkaline Phosphatase 111 U/L (38-126); Aspartate Aminotransferase 60 IU/L (14-36); BUN Creatinine Ratio 17.2 (6-22); Bilirubin Total 0.5 mg/dL (0.2-1.3); Blood Urea Nitrogen 10 mg/dL (7-17); Carbon Dioxide 29 mmol/L (22-32); Chloride 101 mmol/L (98-107); Estimated Glomerular Filt Rate > 60.0 mL/min (>60); Ethanol (ETOH) < 10 mg/dL; Globulin 3.9 g/dL (1.7-4.1); Glucose 123 mg/dL (70-100); HEMOLYSIS < 15 (0-50); Potassium 2.9 mmol/L (3.4-5.1); Salicylate < 1.0 mg/dL (<20); Sodium 141 mmol/L (137-145); Total Protein 8.2 g/dL (6.3-8.2)
[2021-05-20] MEDS: POTASSIUM CHLORIDE 20 MEQ TAB PO (14:01)
[2021-05-20] MEDS: chlordiazePOXIDE 25 MG CAPSULE PO (14:01)
[2021-05-20 14:03] LABS: Free T4, Direct Thyroxine 0.67 ng/dL (0.78-2.19)
[2021-05-20] MEDS: LORazepam 2 MG/ML INJ IV (14:08)
[2021-05-20 16:04] LABS: COVID19 -Nasal RAPID POSITIVE (Negative)
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
== END 2021-05-20 16:54 | disposition home or self-care (01) ==
PROVIDERS: Emergency Provider Emergency Medicine; Family Provider Family Medicine
DX: F10.139 Alcohol abuse with withdrawal, unspecified (principal); U07.1 COVID-19; Y90.0 Blood alcohol level of less than 20 mg/100 ml
CPT/HCPCS: 36415; 80053; 80320; 80329; 81003; 81015; 81025; 84439; 84443; 85025; 87086; 87635; 96374; 96375; 99284; C9803; G0480; J2060; J2405

== ENCOUNTER → 2024-08-30 14:01 | Outpatient (CLI) | payer SELFPAY ==
[2025-03-13 15:35] LABS: Urine Drug Scr, Empl Non-NIDA See Separate Report
== END ==
LOC: LAB 14:03
PROVIDERS: Family Provider Family Medicine
DX: Z13.9 Encounter for screening, unspecified (principal)
CPT/HCPCS: 81099

== ENCOUNTER → 2024-09-27 13:58 | Outpatient (CLI) | payer SELFPAY ==
[2024-09-27 14:50] LABS: Urine Drug Scr, Empl Non-NIDA See Separate Report
== END ==
LOC: LAB 13:59
PROVIDERS: Family Provider Family Medicine
DX: Z02.89 Encounter for other administrative examinations (principal)
CPT/HCPCS: 81099